=== PATIENT | female | born 1995 | race Two or more races ===

== ENCOUNTER 2017-03-07 18:53 | Emergency (ER) | payer SELFPAY ==
[2017-03-07 18:59] VITALS: BP 125/74; BMI 29.0
[2017-03-07 19:24] LABS: BILIRUBIN,URINE NEGATIVE (NEGATIVE); BLOOD/HEMOGLOBIN,URINE 4+ (NEGATIVE); GLUCOSE, URINE NEGATIVE (NEGATIVE); KETONES,URINE 3+ (NEGATIVE); LEUKOCYTE ESTERASE ,URINE NEGATIVE (NEGATIVE); NITRITES,URINE NEGATIVE (NEGATIVE); PROTEIN,URINE NEGATIVE (NEGATIVE); UROBILINOGEN,URINE NORMAL (NORMAL)
[2017-03-07 19:36] LABS: APPEARANCE,URINE HAZY (CLEAR); COLOR,URINE YELLOW (YELLOW); SQUAMOUS EPITHELIAL CELL,UR NEGATIVE /HPF (NEGATIVE)
[2017-03-07 19:37] LABS: BACTERIA,URINE TRACE /HPF (NEGATIVE)
--- NOTE | 2017-03-07 19:50 | DR.GENAD ---
HPI - PCP Primary Care Physician: NFD - Complaint/Symptoms Chief Complaint Doctors Comments: History as stated. CT ABD/Pelv w contrast: 1. Moderate to large amount stool present within the distal sigmoidf colon in the region of the rectum. The appendix is clearly identified and normal in its appearance.Both ovaries are mildly prominent but no evidence of a dominant cyst is present. Cholelithiasis with mild distention of the gallbladder and possible small choledochocele vs extrahepatic dilatation of the hepatic duct. CT refulst of [facility] 03/07/17 6025. Chief Complaint:: PATIENT STATED SHE HAS BEEN HAVING RIGHT LOWER ABD PAIN SINCE YESTERDAY. WAS SEEN IN [facility] ER TODAY AND WAS TOLD IT WAS HER GALLBLADDER, BUT FAMILY THINKS IT MAY BE HER APPENDIX - Source History Provided: Patient - Mode of Arrival Mode of Arrival: Ambulatory - Timing Onset of Chief Complaint: 03/06/17 PMH - PMH Past Medical History: No Past Surgical History: No - Family History History of Family Medical Conditions: No - Social History Does patient currently use any type of tobacco product: No Have you used tobacco products in the last 12 months: No Type of Tobacco Use: None Does any household member use tobacco: No Alcohol Use: None Do you use any recreational Drugs:: No Lives With: Family Lives Where: Home - infectious screening In the last 2 months have you had wt loss of >10#?: NO Have you had fever, night sweats or hemotysis?: No Have you traveled outside the country in the last 6 months?: No Isolation: Standard ROS - Review of Systems Constitutional: negative: Diaphoresis Eyes: No Symptoms Reported ENTM: No Symptoms Reported Respiratoy: No Symptoms Reported Cardiovascular: No Symptoms Reported Gastrointestinal/Abdominal: No Symptoms Reported Genitourinary: No Symptoms Reported Neurological: No Symptoms Reported Musculoskeletal: No Symptoms Reported Integumentary: No Symptoms Reported Hematologic/Lymphatic: No Symptoms Reported Endocrine: No Symptoms Reported Psychiatric: No Symptoms Reported All Other Systems: Reviewed and Negative PE - Vital Signs Vitals: Temperature 98.6 F Pulse Rate 91 Respiratory Rate 18 Blood Pressure 125/74 O2 Sat by Pulse Oximetry 100 - General Limitations: No Limitations General Appearance: Alert - Head Head Exam: Normal Inspection, Atraumatic - Eyes Eye exam: Normal Appearance, PERRL, EOMI - ENT ENT Exam: Normal Exam, Normal Oropharynx External Ear Exam: Normal External Inspection TM/Canal Exam: Bilateral Normal Nose Exam: Normal Nose Exam Mouth Exam: Normal Inspection Throat Exam: Normal Inspection - Neck Neck Exam: Normal Inspection, Full ROM - Chest Chest Inspection: Normal Inspection - Respiratory Respiratory Exam: Normal Lung Sounds Bilat Respiratory Exam: Bilateral Clear to Auscultation - Cardiovascular Cardiovascular Exam: Regular Rate, Normal Rhythm - Abdominal Exam Abdominal Exam: Normal Inspection, Normal Bowel Sounds Abdominal Tenderness: negative: RUQ, RLQ, LUQ, LLQ, Epigastrium, Suprapubic, Diffuse, Mild, Moderate, Severe, Other - Extremities Extremities Exam: Normal Inspection, Full ROM - Back Back Exam: Normal Inspection, Full ROM - Neurologic Neurological Exam: Alert, Oriented X3, CN II-XII Intact - Psychiatric Psychiatric Exam: Normal Affect, Normal Mood - Skin Skin Exam: Warm, Dry, Intact ROR - Labs Reviewed Result Diagrams: 03/07/17 19:53 03/07/17 19:53 Laboratory: WBC 11.4 X10^3/uL (3.6-10.0) H 03/07/17 19:53 RBC 4.64 X10^6/uL (3.5-5.4) 03/07/17 19:53 Hgb 13.3 g/dL (12.0-16.0) 03/07/17 19:53 Hct 39.0 % (36.0-47.0) 03/07/17 19:53 MCV 84.1 fL (80.0-100.0) 03/07/17 19:53 MCH 28.7 pg (27.0-34.0) 03/07/17 19:53 MCHC 34.1 g/dL (33.0-35.0) 03/07/17 19:53 RDW 14.0 % (11.6-16.5) 03/07/17 19:53 Plt Count 266 X10^3/uL (150.0-450.0) 03/07/17 19:53 MPV 8.5 fL (7.4-11.0) 03/07/17 19:53 Neut % 86.7 % (42.0-75.0) H 03/07/17 19:53 Lymph % 8.0 % (21.0-51.0) L 03/07/17 19:53 [place] % 4.8 % (0.0-13.0) 03/07/17 19:53 Eos % 0.1 % (0.9-2.9) L 03/07/17 19:53 Baso % 0.4 % (0.2-1.0) 03/07/17 19:53 Neut # 9.8 x10^3/uL (2.2-4.8) H 03/07/17 19:53 Lymph # 0.9 X10^3/uL (1.3-2.9) L 03/07/17 19:53 [place] # 0.5 x10^3/uL (0.3-0.8) 03/07/17 19:53 Eos # 0.0 x10^3/uL (0.0-0.2) 03/07/17 19:53 Baso # 0.0 X10^3/uL (0.0-0.1) 03/07/17 19:53 Absolute Nucleated RBC 0.0 /100WBC 03/07/17 19:53 Sodium 144 mmol/L (136-145) 03/07/17 19:53 Corrected Sodium 144 mmol/L (136-145) 03/07/17 19:53 Potassium 3.9 mmol/L (3.5-5.1) 03/07/17 19:53 Chloride 110 mmol/L (98-107) H 03/07/17 19:53 Carbon Dioxide 23.6 mmol/L (21-32) 03/07/17 19:53 BUN 8 mg/dL (7-18) 03/07/17 19:53 Creatinine 0.74 mg/dL (0.55-1.02) 03/07/17 19:53 Est GFR (MDRD) Af Amer > 60 (>60) 03/07/17 19:53 Est GFR (MDRD) Non-Af > 60 (>60) 03/07/17 19:53 Glucose 113 mg/dL (65-99) H 03/07/17 19:53 Calcium 9.0 mg/dL (8.5-10.1) 03/07/17 19:53 C-Reactive Protein 2.20 mg/L (0-3.0) 03/07/17 19:53 Specimen Type Clean catch urine 03/07/17 17:54 Urine Color Yellow (YELLOW) 03/07/17 17:54 Urine Appearance Hazy (CLEAR) 03/07/17 17:54 Urine pH 6.0 (5.0 - 8.0) 03/07/17 17:54 Ur Specific Har[place] 1.010 (1.000-1.030) 03/07/17 17:54 Urine Protein Negative (NEGATIVE) 03/07/17 17:54 Urine Glucose (UA) Negative (NEGATIVE) 03/07/17 17:54 Urine Ketones 3+ (NEGATIVE) 03/07/17 17:54 Urine Occult Blood 4+ (NEGATIVE) 03/07/17 17:54 Urine Nitrite Negative (NEGATIVE) 03/07/17 17:54 Urine Bilirubin Negative (NEGATIVE) 03/07/17 17:54 Urine Urobilinogen Normal (NORMAL) 03/07/17 17:54 Ur Leukocyte Esterase Negative (NEGATIVE) 03/07/17 17:54 Urine RBC 5-7 /HPF (NEGATIVE) 03/07/17 17:54 Urine WBC 0-2 /HPF (NEGATIVE) 03/07/17 17:54 Ur Squamous Epith Cells Negative /HPF (NEGATIVE) 03/07/17 17:54 Urine Bacteria Trace /HPF (NEGATIVE) 03/07/17 17:54 Ur Culture Indicated? No/not indicated 03/07/17 17:54 - XRAY XRAY Interpreted by: Radiologist (CT of AB/Pelf w contrast in sujective complaint) - Diagnosis Discharge Problem: Constipation Qualifiers: Constipation type: slow transit constipation Qualified Code(s): K59.01 - Slow transit constipation Cholelithiases Qualifiers: Cholelithiasis location: gallbladder Cholecystitis presence: without cholecystitis Biliary obstruction: without biliary obstruction Qualified Code(s) : K80.20 - Calculus of gallbladder without cholecystitis without obstruction - Discharge Plan Condition: Stable - Follow ups/Referrals Follow ups/Referrals: NFD,None [Primary Care Provider] - 3 days - Instructions
[2017-03-07 20:00] LABS: BASOPHILS % (AUTO) 0.4 % (0.2-1.0); EOSINOPHILS % (AUTO) 0.1 % (0.9-2.9); HEMOGLOBIN 13.3 g/dL (12.0-16.0); LYMPHOCYTES # (AUTO) 0.9 X10^3/uL (1.3-2.9); MEAN CORPUSCULAR HEMOGLOBIN 28.7 pg (27.0-34.0); MEAN CORPUSCULAR HGB CONC 34.1 g/dL (33.0-35.0); MEAN CORPUSCULAR VOLUME 84.1 fL (80.0-100.0); MEAN PLATELET VOLUME 8.5 fL (7.4-11.0); MONOCYTES # (AUTO) 0.5 x10^3/uL (0.3-0.8); MONOCYTES % (AUTO) 4.8 % (0.0-13.0); NEUTROPHILS # (AUTO) 9.8 x10^3/uL (2.2-4.8); NEUTROPHILS % (AUTO) 86.7 % (42.0-75.0); PLATELET COUNT 266 X10^3/uL (150.0-450.0); RED BLOOD COUNT 4.64 X10^6/uL (3.5-5.4); WHITE BLOOD COUNT 11.4 X10^3/uL (3.6-10.0)
[2017-03-07 20:09] LABS: BLOOD UREA NITROGEN 8 mg/dL (7-18); CARBON DIOXIDE 23.6 mmol/L (21-32); CHLORIDE 110 mmol/L (98-107); COR NA(FOR HYPERGLY) 144 mmol/L (136-145); CREATININE 0.74 mg/dL (0.55-1.02); SODIUM 144 mmol/L (136-145); eGFR BLACK RACES > 60 (>60); eGFR NON BLACK RACES > 60 (>60)
--- NOTE | 2017-03-07 22:09 | RAD ---
EXAM: Abdomen series and Chest x-ray INDICATION: Abdominal pain COMPARISION: No priors TECHNIQUE: Abdomen flat and upright, two views and PA view of the chest, single view FINDINGS: The lungs are clear. No pneumothorax or pleural effusion. The cardiac silhouette and mediastinum are normal. The bowel gas pattern is nonobstructed. No abnormal mass effect or calcification. The regiona l skeleton is intact. No free air is seen under the hemidiaphragms. There is intravenous contrast in the renal collecting system on the left in urinary bladder. IMPRESSION: Normal abdominal series and chest x-ray. Reported By:
== END 2017-03-07 20:42 | disposition home or self-care (01) ==
LOC: ER 19:03
DX: K80.20 Calculus of gallbladder without cholecystitis without obstruction (principal); K59.01 Slow transit constipation
CPT/HCPCS: 36415; 74022; 80048; 81001; 85025; 86140; 99283

== ENCOUNTER 2017-03-10 17:51 | Inpatient (IN) | payer SELFPAY ==
--- NOTE | 2017-03-10 17:58 | DR.GENAD ---
HPI - HPI Comment HPI Comment: HISTORY BELOW. - Complaint/Symptoms Chief Complaint Doctors Comments: RLQ ABDOMINAL PAIN WITH NAUSEA THAT IS GETTING WORSE. DIAGNOSE WITH GALL STONES FEW DAYS AGO. FEEL FEVERISH ON AND OFF. NAUSEATED. GETTING WORSE TODAY. - Nurses notes reviewed Nurses Notes Review: Yes - Source History Provided: Patient, Parent, Family Member - Mode of Arrival Mode of Arrival: Ambulatory - Timing Came on: Suddenly - Duration Duration: Constant Duration: Days - Severity Severity: Moderate PMH - PMH Past Surgical History: No - Social History Do you use any recreational Drugs:: No ROS - Review of Systems Constitutional: Weakness, Fatigue. negative: Chills, Fever Eyes: No Symptoms Reported ENTM: No Symptoms Reported. negative: Ear Pain, Nose Discharge, Nose Congestion , Throat Pain Respiratoy: No Symptoms Reported. negative: Productive Cough, Non-Productive Cough, Short of Breath, Wheezing, Hemoptysis Cardiovascular: No Symptoms Reported. negative: Chest Pain, Edema, Palpitations Gastrointestinal/Abdominal: Abdominal Pain, Nausea. negative: Diarrhea, Vomiting Genitourinary: No Symptoms Reported Neurological: Weakness Musculoskeletal: Muscle Pain Integumentary: No Symptoms Reported Hematologic/Lymphatic: No Symptoms Reported Endocrine: No Symptoms Reported All Other Systems: Reviewed and Negative PE - Vital Signs Vitals: Temperature 98.9 F Pulse Rate 98 Respiratory Rate 22 Blood Pressure 149/93 O2 Sat by Pulse Oximetry 100 - General Limitations: No Limitations General Appearance: Alert - Head Head Exam: Normal Inspection - Eyes Eye exam: Normal Appearance - ENT ENT Exam: Normal Exam External Ear Exam: Normal External Inspection TM/Canal Exam: Bilateral Normal Nose Exam: Normal Nose Exam Mouth Exam: Normal Inspection Throat Exam: Normal Inspection - Neck Neck Exam: Normal Inspection, Trachea Midline - Chest Chest Inspection: Symmetric Chest Wall Rise - Respiratory Respiratory Exam: Normal Lung Sounds Bilat Respiratory Exam: Bilateral Clear to Auscultation - Cardiovascular Cardiovascular Exam: Regular Rate, Normal Rhythm, Normal Heart Sounds - Abdominal Exam Abdominal Exam: Normal Bowel Sounds, Soft, Tenderness Abdominal Tenderness: RLQ, Moderate - Extremities Extremities Exam: Normal Inspection - Back Back Exam: Normal Inspection - Neurologic Neurological Exam: Alert, Oriented X3, CN II-XII Intact, Normal Gait, Reflexes Normal. negative: Motor Sensory Deficit - Psychiatric Psychiatric Exam: Normal Affect, Normal Mood - Skin Skin Exam: Normal Color MDM - Additional Information Additional Information Obtained From: Family - Differential Diagnosis Differential Diagnosis: RLQ ABDOMINAL PAIN, RT FLANK PAIN, APPENDICITIS, UTI, RENAL CALCULI, PYELO Course - Treatment Treatment: SEE ORDERS. IV FLUIDS AND IV PAIN MED IN ED. - Consultation Consultation Comments: DISCUSS PATIENT WITH DR. JOSEPH. HE WILL ADMIT PATIENT. - Education/Counseling Education/Counseling: Patient, Family, Education Educated On: Diagnosis, Needs for Follow Up ROR - Labs Reviewed Laboratory Results Reviewed?: Yes Result Diagrams: 03/11/17 05:30 03/11/17 05:30 Laboratory: WBC 6.4 X10^3/uL (3.6-10.0) 03/10/17 18:20 RBC 4.73 X10^6/uL (3.5-5.4) 03/10/17 18:20 Hgb 13.8 g/dL (12.0-16.0) 03/10/17 18:20 Hct 40.2 % (36.0-47.0) 03/10/17 18:20 MCV 84.9 fL (80.0-100.0) 03/10/17 18:20 MCH 29.2 pg (27.0-34.0) 03/10/17 18:20 MCHC 34.3 g/dL (33.0-35.0) 03/10/17 18:20 RDW 13.4 % (11.6-16.5) 03/10/17 18:20 Plt Count 294 X10^3/uL (150.0-450.0) 03/10/17 18:20 MPV 8.4 fL (7.4-11.0) 03/10/17 18:20 Neut % 47.2 % (42.0-75.0) 03/10/17 18:20 Lymph % 36.5 % (21.0-51.0) 03/10/17 18:20 Bath % 10.6 % (0.0-13.0) 03/10/17 18:20 Eos % 5.0 % (0.9-2.9) H 03/10/17 18:20 Baso % 0.7 % (0.2-1.0) 03/10/17 18:20 Neut # 3.0 x10^3/uL (2.2-4.8) 03/10/17 18:20 Lymph # 2.3 X10^3/uL (1.3-2.9) 03/10/17 18:20 Bath # 0.7 x10^3/uL (0.3-0.8) 03/10/17 18:20 Eos # 0.3 x10^3/uL (0.0-0.2) H 03/10/17 18:20 Baso # 0.0 X10^3/uL (0.0-0.1) 03/10/17 18:20 Absolute Nucleated RBC 0.1 /100WBC 03/10/17 18:20 Sodium 140 mmol/L (136-145) 03/10/17 18:20 Corrected Sodium TNP 03/10/17 18:20 Potassium 3.7 mmol/L (3.5-5.1) 03/10/17 18:20 Chloride 107 mmol/L (98-107) 03/10/17 18:20 Carbon Dioxide 25.8 mmol/L (21-32) 03/10/17 18:20 BUN 9 mg/dL (7-18) 03/10/17 18:20 Creatinine 0.73 mg/dL (0.55-1.02) 03/10/17 18:20 Est GFR (MDRD) Af Amer > 60 (>60) 03/10/17 18:20 Est GFR (MDRD) Non-Af > 60 (>60) 03/10/17 18:20 Glucose 91 mg/dL (65-99) 03/10/17 18:20 Calcium 9.1 mg/dL (8.5-10.1) 03/10/17 18:20 Corrected Calcium TNP 03/10/17 18:20 Total Bilirubin 0.20 mg/dL (0.2-1.0) 03/10/17 18:20 AST 81 Units/L (15-37) H 03/10/17 18:20 ALT 212 Units/L (12-78) H 03/10/17 18:20 Alkaline Phosphatase 81 Units/L (46-116) 03/10/17 18:20 C-Reactive Protein 2.90 mg/L (0-3.0) 03/10/17 18:20 Total Protein 7.4 g/dL (6.4-8.2) 03/10/17 18:20 Albumin 3.7 g/dL (3.4-5.0) 03/10/17 18:20 Globulin 3.7 g/dL (2.5-4.5) 03/10/17 18:20 Albumin/Globulin Ratio 1.0 Ratio (1.1-2.1) L 03/10/17 18:20 Amylase 30 Units/L (25-115) 03/10/17 18:20 Lipase 97 Units/L (73-393) 03/10/17 18:20 H. pylori IgG Antibody Positive (NEGATIVE) A 03/10/17 18:20 - XRAY XRAY Interpreted by: Radiologist XRAY Findings: REPORT DISCUSS WITH PATIENT AND FAMILY. - Diagnosis Discharge Problem: Hydronephrosis with renal and ureteral calculous obstruction, Right flank pain Abdominal pain Qualifiers: Abdominal location: right lower quadrant Qualified Code(s): R10.31 - Right lower quadrant pain - Discharge Plan Disposition: ADMITTED INPATIENT Condition: Stable - Follow ups/Referrals - Instructions
[2017-03-10 18:29] LABS: BASOPHILS % (AUTO) 0.7 % (0.2-1.0); EOSINOPHILS # (AUTO) 0.3 x10^3/uL (0.0-0.2); HEMATOCRIT 40.2 % (36.0-47.0); HEMOGLOBIN 13.8 g/dL (12.0-16.0); LYMPHOCYTES # (AUTO) 2.3 X10^3/uL (1.3-2.9); LYMPHOCYTES % (AUTO) 36.5 % (21.0-51.0); MEAN CORPUSCULAR HEMOGLOBIN 29.2 pg (27.0-34.0); MEAN CORPUSCULAR HGB CONC 34.3 g/dL (33.0-35.0); MEAN CORPUSCULAR VOLUME 84.9 fL (80.0-100.0); MEAN PLATELET VOLUME 8.4 fL (7.4-11.0); MONOCYTES # (AUTO) 0.7 x10^3/uL (0.3-0.8); MONOCYTES % (AUTO) 10.6 % (0.0-13.0); NEUTROPHILS % (AUTO) 47.2 % (42.0-75.0); PLATELET COUNT 294 X10^3/uL (150.0-450.0); RED BLOOD COUNT 4.73 X10^6/uL (3.5-5.4); RED CELL DISTRIBUTION WIDTH 13.4 % (11.6-16.5); WHITE BLOOD COUNT 6.4 X10^3/uL (3.6-10.0)
[2017-03-10 18:41] LABS: ALANINE AMINOTRANSFERASE 212 Units/L (12-78); ALBUMIN 3.7 g/dL (3.4-5.0); ALKALINE PHOSPHATASE 81 Units/L (46-116); AMYLASE 30 Units/L (25-115); ASPARTATE AMINO TRANSFERASE 81 Units/L (15-37); BLOOD UREA NITROGEN 9 mg/dL (7-18); CALCIUM 9.1 mg/dL (8.5-10.1); CARBON DIOXIDE 25.8 mmol/L (21-32); CHLORIDE 107 mmol/L (98-107); CREATININE 0.73 mg/dL (0.55-1.02); LIPASE 97 Units/L (73-393); SODIUM 140 mmol/L (136-145); TOTAL PROTEIN 7.4 g/dL (6.4-8.2); eGFR BLACK RACES > 60 (>60); eGFR NON BLACK RACES > 60 (>60)
[2017-03-10] MEDS ORDERED: DEMEROL INJ IVP ONE (18:45)
[2017-03-10] MEDS ORDERED: ZOFRAN INJ 4 MG VIAL IVP ONE (18:45)
[2017-03-10] MEDS ORDERED: DEMEROL INJ ONE (18:58)
[2017-03-10] MEDS ORDERED: ZOFRAN INJ 4 MG VIAL ONE (18:58)
--- NOTE | 2017-03-10 21:30 | CT ---
CT Abdomen and pelvis with contrast Indication: Right lower quadrant pain Technique: Helical CT images of the abdomen and pelvis were obtained with IV contrast. Reformatted im ages in the coronal and sagittal planes were also generated for review. Comparison: None Findings: Visualized lung bases are clear. No aggressive osseous lesions are identified. The liver, spleen, pancreas and adrenal glands are unremarkable. There is a 1.4 cm peripherally calci fied gallstone within the nondistended gallbladder. No gallbladder wall edema, pericholecystic strand ing or biliary dilatation is seen. There is a 2-3 mm stone within the mid right ureter (image 48, series 4) with mild right-sided hydrou reteronephrosis. There is also slightly decreased enhancement of the right kidney compared to the lef t. Multiple additional bilateral renal stones versus early contrast excretion into the bilateral rubi l collecting systems are present. No left-sided hydroureteronephrosis is seen. The GI tract, including the appendix is normal. The IVC, abdominal aorta and urinary bladder are norm al. The uterus and adnexa are grossly normal for patient age. No free air, free fluid or lymphadenopa thy is identified. Impression: 1. Mild right-sided hydroureteronephrosis secondary to a 3 mm calculus within the mid right ureter. T here is also mild asymmetric hypoenhancement of the right kidney relative to the left, compatible wit h obstruction. 2. Additional bilateral renal stones versus early contrast excretion into the bilateral renal collect ing systems. 3. Otherwise, no additional acute abnormality. Specifically, no CT evidence of acute appendicitis. 4. Cholelithiasis. Reported By:
[2017-03-10] MEDS ORDERED: DEMEROL INJ IVP PRN (22:37)
[2017-03-10] MEDS ORDERED: ZOFRAN INJ 4 MG VIAL IVP PRN (22:37)
[2017-03-10] MEDS ORDERED: TORADOL 30 MG VIAL IVP PRN (22:37)
[2017-03-10 22:38] LABS: BILIRUBIN,URINE NEGATIVE (NEGATIVE); BLOOD/HEMOGLOBIN,URINE 1+ (NEGATIVE); GLUCOSE, URINE NEGATIVE (NEGATIVE); KETONES,URINE NEGATIVE (NEGATIVE); LEUKOCYTE ESTERASE ,URINE NEGATIVE (NEGATIVE); NITRITES,URINE NEGATIVE (NEGATIVE); PROTEIN,URINE 2+ (NEGATIVE); UROBILINOGEN,URINE NORMAL (NORMAL)
[2017-03-10 22:44] LABS: APPEARANCE,URINE CLEAR (CLEAR); BACTERIA,URINE NEGATIVE /HPF (NEGATIVE); COLOR,URINE YELLOW (YELLOW); RBC,URINE 0-3 /HPF (NEGATIVE); SQUAMOUS EPITHELIAL CELL,UR FEW /HPF (NEGATIVE)
[2017-03-10] MEDS ORDERED: NS 1000 ML 1,000 ML ONE (22:48)
[2017-03-10] MEDS: NS 1000 ML 1,000 ML IV SCH (22:53)
[2017-03-10 23:39] VITALS: BMI 32.2
[2017-03-10 23:44] LABS: SERUM PREGNANCY TEST, QUAL NEGATIVE <10 mIU/mL
[2017-03-11 06:04] LABS: BASOPHILS % (AUTO) 0.7 % (0.2-1.0); EOSINOPHILS # (AUTO) 0.4 x10^3/uL (0.0-0.2); EOSINOPHILS % (AUTO) 5.5 % (0.9-2.9); HEMATOCRIT 39.7 % (36.0-47.0); HEMOGLOBIN 13.7 g/dL (12.0-16.0); LYMPHOCYTES # (AUTO) 2.4 X10^3/uL (1.3-2.9); LYMPHOCYTES % (AUTO) 36.7 % (21.0-51.0); MEAN CORPUSCULAR HEMOGLOBIN 29.2 pg (27.0-34.0); MEAN CORPUSCULAR HGB CONC 34.4 g/dL (33.0-35.0); MEAN CORPUSCULAR VOLUME 84.8 fL (80.0-100.0); MEAN PLATELET VOLUME 8.9 fL (7.4-11.0); MONOCYTES # (AUTO) 0.7 x10^3/uL (0.3-0.8); MONOCYTES % (AUTO) 10.3 % (0.0-13.0); NEUTROPHILS % (AUTO) 46.8 % (42.0-75.0); PLATELET COUNT 284 X10^3/uL (150.0-450.0); RED BLOOD COUNT 4.69 X10^6/uL (3.5-5.4); RED CELL DISTRIBUTION WIDTH 13.7 % (11.6-16.5); WHITE BLOOD COUNT 6.5 X10^3/uL (3.6-10.0)
[2017-03-11 06:16] LABS: ALANINE AMINOTRANSFERASE 194 Units/L (12-78); ALBUMIN 3.4 g/dL (3.4-5.0); ALKALINE PHOSPHATASE 69 Units/L (46-116); ASPARTATE AMINO TRANSFERASE 82 Units/L (15-37); BLOOD UREA NITROGEN 7 mg/dL (7-18); CALCIUM 8.9 mg/dL (8.5-10.1); CARBON DIOXIDE 26.2 mmol/L (21-32); CHLORIDE 107 mmol/L (98-107); CREATININE 0.58 mg/dL (0.55-1.02); SODIUM 142 mmol/L (136-145); TOTAL PROTEIN 6.9 g/dL (6.4-8.2); eGFR BLACK RACES > 60 (>60); eGFR NON BLACK RACES > 60 (>60)
[2017-03-11] MEDS: NS 1000 ML 1,000 ML IV SCH ×2 (06:28→15:01)
[2017-03-11] MEDS ORDERED: NORCO 10/325 TAB PO PRN (10:30)
[2017-03-11] MEDS ORDERED: FLOMAX PO SCH (11:00)
[2017-03-11 12:59] VITALS: BP 122/68
== END 2017-03-11 18:15 | disposition home or self-care (01) | DRG 694 ==
LOC: ER 18:11 → MED/SURG 22:32
PROVIDERS: ADMIT Internal Medicine; ATTEND Internal Medicine
DX: N13.2 Hydronephrosis with renal and ureteral calculous obstruction (principal); R10.31 Right lower quadrant pain; R53.1 Weakness; B96.81 Helicobacter pylori [H. pylori] as the cause of diseases classified elsewhere
CPT/HCPCS: 36415; 74177; 80053; 81001; 82150; 83690; 84703; 85025; 86140; 86677; 96365; 96374; 96375; 99284; A4222; J2175; J2405

== ENCOUNTER → 2017-04-06 | Outpatient (CLI) | payer SELFPAY ==
[2017-03-11 12:59] VITALS: BP 122/68
--- NOTE | 2017-04-07 10:09 | CT ---
HISTORY: Right flank/lower abdominal pain. Study: CT abdomen and pelvis without contrast Comparison: CT abdomen/pelvis dated March 10, 2017. Technique: Multiple axial images of the abdomen and pelvis were obtained from the lung bases to the pubic symphy sis without the administration of IV contrast. Dose reduction techniques including Automated Exposur e Control (AEC) and adjustment of mA and kV were utilized. Findings: Limited study secondary to lack of IV and oral contrast. The visualized portions of the lung bases are unremarkable. The liver, spleen, pancreas, kidneys, an d adrenal glands are unremarkable in their CT appearance. Cholelithiasis without CT evidence of norris cystitis. No significant mesenteric lymphadenopathy or stranding can be observed. No free fluid or free air is seen within the abdomen. Limited evaluation of the large and small bowel secondary to th e lack of oral contrast and collapse. The large and small bowel otherwise appear normal. The appendi x appears normal. The uterus and ovaries appear normal. The urinary bladder is grossly unremarkable. The bony structures are grossly intact. IMPRESSION: 1. No CT evidence of acute abdominal/pelvic pathology. 2. Cholelithiasis. Reported By:
== END | disposition home or self-care (01) ==
LOC: RAD 13:21
PROVIDERS: ATTEND Nurse Practitioner Family
DX: N20.0 Calculus of kidney (principal); K80.80 Other cholelithiasis without obstruction
CPT/HCPCS: 74176